=== PATIENT | male | born 1955 | race Caucasian/White ===

== ENCOUNTER 2019-05-21 19:40 | Emergency (ER) | payer OTHER ==
[2019-05-21] MEDS ORDERED: Famotidine 20 MG Tab PO ONE (20:35)
[2019-05-21] MEDS ORDERED: predniSONE 20 MG Tab PO ONE (20:35)
--- NOTE | 2019-05-21 20:41 | EDM.PDOC ---
ED HPI GENERAL MEDICAL PROBLEM - General Chief Complaint: Skin Complaint Stated Complaint: HIVES ALL OVER BODY Time Seen by Provider: 05/21/19 20:18 Source of Information: Reports: Patient History Limitations: Reports: No Limitations - History of Present Illness INITIAL COMMENTS - FREE TEXT/NARRATIVE: 63-year-old male who reports onset of itching and rash on night. It seemed to be just at his armpit areas and it was mild and seemed to go away. On Thursday evening he began to have the rash again and it seemed to be somewhat worse than before and he thought it may have been related to usage of a T- shirt. It was quite itchy. There was no pain associated with it. He had no trouble breathing. It seemed to resolve and then today he is pretty much had the rash coming and going all through the day and it seems to have spread or his entire trunk and his proximal lower extremities. He continues to have no pain. He rates his pain as a 0/10. The itching is moderate to severe. He has no difficulty breathing. He has had no weakness or dizziness. He's had no trouble swallowing. He's had no feelings of throat swelling. No nausea or vomiting. He has been eating and drinking normally. There are no other associated signs or symptoms. There are no other modifying factors. 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 Medication(s) (Topical steroid creams with no relief) - Related Data Allergies Allergy/AdvReac Type Severity Reaction Status Date / Time No Known Allergies Allergy Verified 05/21/19 20:24 Home Meds: Home Meds Escitalopram [Lexapro] 20 mg PO DAILY 05/21/19 [History] Meloxicam 15 mg PO DAILY 05/21/19 [History] Metoprolol Succinate [Toprol Xl] 50 mg PO DAILY 05/21/19 [History] Ranitidine HCl 150 mg PO BID #8 tablet 05/21/19 [Rx] Tamsulosin HCl [Flomax] 0.4 mg PO DAILY 05/21/19 [History] predniSONE [Prednisone] 60 mg PO QAM 3 Days #9 tablet 05/21/19 [Rx] Past Medical History Cardiovascular History: Reports: Arrhythmia (Palpitations, on metoprolol for this.) Genitourinary History: Reports: BPH - Past Surgical History Other Surgical History Comment: No previous surgeries. Social & Family History - Tobacco Use Smoking Status *Q: Unknown Ever Smoked (Nonsmoker) - Alcohol Use Alcohol Use History: No - Living Situation & Occupation Living situation: Reports: Occupation: Employed Social History Comment: Here by himself. ED ROS GENERAL - Review of Systems Review Of Systems: See Below Constitutional: Reports: No Symptoms HEENT: Denies: Throat Pain, Throat Swelling Respiratory: Reports: No Symptoms Cardiovascular: Reports: No Symptoms Endocrine: Reports: No Symptoms GI/Abdominal: Reports: No Symptoms : Reports: No Symptoms Musculoskeletal: Reports: No Symptoms Skin: Reports: Rash, Urticaria Neurological: Reports: No Symptoms Hematologic/Lymphatic: Reports: No Symptoms Immunologic: Reports: No Symptoms ED EXAM, SKIN/RASH Exam: See Below Exam Limited By: No Limitations General Appearance: Alert, WD/WN, Mild Distress Eye Exam: Bilateral Eye: EOMI, Normal Inspection, PERRL Ears: Normal External Exam Nose: Normal Inspection, Normal Mucosa, No Blood Throat/Mouth: Normal Inspection, Normal Oropharynx, Normal Voice, No Airway Compromise Head: Atraumatic, Normocephalic Neck: Normal Inspection, Supple, Non-Tender, Full Range of Motion Respiratory/Chest: No Respiratory Distress, Lungs Clear, Normal Breath Sounds, No Accessory Muscle Use, Chest Non-Tender Cardiovascular: Normal Peripheral Pulses, Regular Rate, Rhythm, No JVD Peripheral Pulses: 2+: Radial (L), Radial (R) GI/Abdominal: Normal Bowel Sounds, Soft, Non-Tender, No Mass Back Exam: Normal Inspection Extremities: Normal Inspection, Normal Range of Motion, Non-Tender, No Pedal Edema, Normal Capillary Refill Neurological: Alert, Oriented, CN II-XII Intact, Normal Cognition, No Motor/ Sensory Deficits Skin: Warm, Dry, Intact, Normal Color, Erythema Location, Skin: Chest, Abdomen, Axillary Characteristics: Urticarial Course - Vital Signs Last Recorded V/S: Last Vital Signs Temp 36.4 C 05/21/19 20:00 Pulse 64 05/21/19 20:00 Resp 16 05/21/19 20:00 BP 146/108 H 05/21/19 20:00 Pulse Ox 97 05/21/19 20:00 - Orders/Labs/Meds Meds: Medications Discontinued Medications Generic Name Dose Route Start Last Admin Trade Name Carl PRN Reason Stop Dose Admin Famotidine 20 mg 05/21/19 20:35 05/21/19 20:45 Pepcid PO 05/21/19 20:36 20 mg ONETIME ONE Administration Prednisone 60 mg 05/21/19 20:35 05/21/19 20:45 Prednisone PO 05/21/19 20:36 60 mg ONETIME ONE Administration - Re-Assessments/Exams Free Text/Narrative Re-Assessment/Exam: 05/21/19 20:36: Patient with hives. He has no respiratory difficulties and has a normal blood pressure and pulse. He will be treated with prednisone and Pepcid here in the emergency department and he will take 50 mg of Benadryl when he gets home. I will send the patient home with prescription for prednisone for the next 3 days after today and ranitidine to be taken with Benadryl for the next 2 days and then as needed for allergic reaction. Departure - Departure Time of Disposition: 20:45 Disposition: Home, Self-Care 01 Clinical Impression: Hives of unknown origin - Discharge Information Prescriptions: predniSONE [Prednisone] 60 mg PO QAM 3 Days #9 tablet Ranitidine HCl 150 mg PO BID #8 tablet Instructions: Hives Referrals: Dora Quinonez [employer] [Primary Care Provider] - Forms: ED Department Discharge Additional Instructions: You have hives. This represents an allergic reaction. 80-90% of the time the cause of the hives is unknown. You should drink plenty of fluids. You should rest. Take Benadryl 50 mg by mouth 4 times a day for the next 2 days and then as needed for allergic reaction or rash. Medication as prescribed (prednisone, ranitidine). Follow-up with your primary doctor as needed. Back to the emergency department for deformity breathing, high fever, unrelenting vomiting or any other concerning sign or symptom.
== END 2019-05-21 21:10 | disposition home or self-care (01) ==
LOC: FB.ED 19:40
DX: L50.9 Urticaria, unspecified (principal); Z79.899 Other long term (current) drug therapy
CPT/HCPCS: 99282; A9270

== ENCOUNTER 2021-08-17 07:00 | Emergency (ER) | payer MEDICARE, OTHER ==
--- NOTE | 2021-08-17 07:35 | EDM.PDOC ---
ED HPI GENERAL MEDICAL PROBLEM - General Chief Complaint: General Stated Complaint: R KNEE WOUND OPENED Time Seen by Provider: 08/17/21 07:10 Source of Information: Reports: Patient History Limitations: Reports: No Limitations - History of Present Illness INITIAL COMMENTS - FREE TEXT/NARRATIVE: pt had a lump removed from anterior side of right knee yesterday and this morning noticed bleeding from his wound , bleeding stopped by time of arrival, pt denies any pain or any other associated sx or concerns. - Related Data Allergies Allergy/AdvReac Type Severity Reaction Status Date / Time No Known Allergies Allergy Verified 05/21/19 20:24 Home Meds: Home Meds Escitalopram [Lexapro] 20 mg PO DAILY 05/21/19 [History] Meloxicam 15 mg PO DAILY 05/21/19 [History] Metoprolol Succinate [Toprol Xl] 50 mg PO DAILY 05/21/19 [History] Tamsulosin HCl [Flomax] 0.4 mg PO DAILY 05/21/19 [History] Finasteride 5 mg DAILY 08/17/21 [History] Past Medical History Cardiovascular History: Reports: Arrhythmia Other Cardiovascular History: History of heart palpitations. Genitourinary History: Reports: BPH - Infectious Disease History Infectious Disease History: Reports: None - Past Surgical History Other Surgical History Comment: No previous surgeries. Social & Family History - Family History Family Medical History: No Pertinent Family History - Tobacco Use Tobacco Use Status *Q: Never Tobacco User - Caffeine Use Caffeine Use: Reports: Coffee Caffeine Use Comment: couple cups a day - Recreational Drug Use Recreational Drug Use: No - Living Situation & Occupation Living situation: Reports: Occupation: Employed ED ROS GENERAL - Review of Systems Review Of Systems: See Below Constitutional: Reports: No Symptoms Respiratory: Reports: No Symptoms Cardiovascular: Reports: No Symptoms GI/Abdominal: Reports: No Symptoms Musculoskeletal: Reports: No Symptoms Skin: Reports: No Symptoms ED EXAM, GENERAL - Physical Exam Exam: See Below Exam Limited By: No Limitations General Appearance: Alert, No Apparent Distress Respiratory/Chest: No Respiratory Distress, Lungs Clear Cardiovascular: Normal Peripheral Pulses, Regular Rate, Rhythm Extremities: Other (2 cm incision with no signs of infection or active bleeding. at right knee. ) Course - Vital Signs Text/Narrative:: wound was cleaned and dressing was applied, pt was advised to apply pressure dressing first if this happens again and if it continues to seek medical attention then. Last Recorded V/S: Last Vital Signs Temp 36.7 C 08/17/21 07:10 Pulse 45 L 08/17/21 07:10 Resp 16 08/17/21 07:10 BP 163/92 H 08/17/21 07:10 Pulse Ox 94 L 08/17/21 07:10 Departure - Departure Time of Disposition: 07:35 Disposition: Home, Self-Care 01 Clinical Impression: Post-op bleeding - Discharge Information Referrals: Dora Quinonez WELDER AND [employer]TER [Primary Care Provider] - Sepsis Event Note (ED) - Evaluation Sepsis Screening Result: No Definite Risk - Focused Exam Vital Signs: Vital Signs Temp Pulse Resp BP Pulse Ox 08/17/21 07:10 36.7 C 45 L 16 163/92 H 94 L
== END 2021-08-17 07:42 | disposition home or self-care (01) ==
LOC: FB.ED 07:00
DX: L76.22 Postprocedural hemorrhage of skin and subcutaneous tissue following other procedure (principal)
CPT/HCPCS: 99283